=== PATIENT | male | born 1945 | race Hispanic/Latino ===

== ENCOUNTER → 2023-12-30 | Day surgery (SDC) | payer OTHER ==
[2023-12-27 10:10] LABS: BASOPHILS # (AUTO) 0.1 (0.0-0.1); BASOPHILS % 1.5 % (0.0-1.0); EOSINOPHILS # (AUTO) 0.2 (0.0-0.4); EOSINOPHILS % 3.9 % (0.0-6.0); HEMOGLOBIN 12.7 g/dL (14.0-18.0); LYMPHOCYTES # (AUTO) 1.6 (1.0-3.2); MEAN CORPUSCULAR HEMOGLOBIN 31.1 pg (28-32); MEAN CORPUSCULAR HGB CONC 33.4 g/dL (31-35); MEAN CORPUSCULAR VOLUME 92.9 fL (81-99); MONOCYTES # (AUTO) 0.6 (0.2-0.8); MONOCYTES % 9.5 % (4.4-11.3); NEUTROPHILS # (AUTO) 3.4 (2.1-6.9); NEUTROPHILS % 57.8 % (38.7-80.0); PLATELET COUNT 135 x10e3/uL (140-360); RED BLOOD COUNT 4.09 x10e6/uL (4.3-5.7); RED CELL DISTRIBUTION WIDTH 13.5 % (11.7-14.4); WHITE BLOOD COUNT 5.92 x10e3/uL (4.8-10.8)
[2023-12-27 10:48] LABS: ANION GAP 10.8 mmol/L (8-16); CALCIUM 8.9 mg/dL (8.4-10.2); CREATININE, SERUM 0.82 mg/dL (0.72-1.25); POTASSIUM 3.8 mmol/L (3.5-5.1)
[~2023-12-30] MED LIST: ALENDRONATE SOD35 MG PO; ALENDRONATE SOD70 MG PO; AMLODIPINE BESYL5 MG PO; AQUASOL A50000 UNIT PO; ASPIRIN EC81 MG PO; BALANCED SALT SOLN (OPTH) 15 ML BTL IO ONE; BUPIVACAINE HC 0.75% PF 10ML VIAL INJ ONE; CENTRUM ADULTS1 EACH PO; CENTRUM SILVER1 EAC3 PO; CRESTOR5 MG PO; CYMBALTA20 MG PO; CYMBALTA30 MG PO; DIOVAN160 MG PO; EPINEPHRINE HCL 1:1000 1ML 1 MG/ML AMP ONE; FENTANYL CITRATE/PF 100MCG/2 ML INJ ONE; FINASTERIDE5 MG PO; FOLIC ACID1 MG PO; GABAPENTIN600 MG PO; HYDROCODON-ACE1 EA12 PO; HYDROCODON-ACE1 EAC4; HYDROXYCHLOROQ200 MG PO; LIDOCAINE 2% /EPINEPHRINE 20 ML SDV INJ ONE; LIDOCAINE HCL 2% LOCAL INJ 5 ML SDV VIAL INJ ONE; LIDOCAINE HCL-PF 4% 40 MG/1 ML 5ML AMP ONE; LIPITOR10 MG PO; LOPID600 MG PO; LOSARTAN POTAS100 MG PO; METFORMIN HCL500 MG PO; MIDAZOLAM HCL 2 MG/2 ML VIAL ONE; NEOMYCIN/POLYMYXIN/DEX (OPTH) 3.5 GM TUBE ONE; NITROFURANTOIN100 M1 PO; OMEGA PO; OMEPRAZOLE20 MG PO; ONDANSETRON HCL INJ 2MG/ML 2ML 2 MG/ML VIAL ONE; PANTOPRAZOLE SO40 MG PO; PILOCARPINE HCL(OPTH) 15 ML LIQD ONE; POVIDONE IODINE 5% (OPTH) 30 ML BTL ONE; PROPOFOL IV EMULSION 10 MG/ML 20 ML VIAL ONE; VITAMIN D250000 UNIT PO; VITAMIN D3 COM1 EACH PO; ZINC CHELATED50 M2 PO; [UNRECOGNIZED DRUG - REMARK] PO
[2023-12-30] MEDS: TETRACAINE HCL 0.5% OPTH SOLN 4 ML BTL ONE (06:00)
[2023-12-30] MEDS: CYCLOPENTOLATE HCL 2% OPTH SOLN 2 ML BTL OP ONE (06:00)
[2023-12-30] MEDS: GATIFLOXACIN(OPTH) 5 ML LIQD ONE (06:01)
[2023-12-30] MEDS: PHENYLEPHRINE HCL 2 ML DROPS ONE (06:01)
[2023-12-30] MEDS: LACTATED RINGER'S 1,000 ML ONE (06:01)
[2023-12-30 08:07] VITALS: TEMP 97
[2023-12-30 08:27] VITALS: BP 164/83; PULSE 52; RESP 18; O2SAT 99
== END | disposition home or self-care (01) ==
LOC: OR 05:24
PROVIDERS: ATTEND Ophthalmology
DX: H25.11 Age-related nuclear cataract, right eye (principal); E11.9 Type 2 diabetes mellitus without complications; I10 Essential (primary) hypertension; E78.5 Hyperlipidemia, unspecified; K21.9 Gastro-esophageal reflux disease without esophagitis; M06.9 Rheumatoid arthritis, unspecified; N40.0 Benign prostatic hyperplasia without lower urinary tract symptoms; F32.A Depression, unspecified; Z88.0 Allergy status to penicillin; Z01.810 Encounter for preprocedural cardiovascular examination; Z01.812 Encounter for preprocedural laboratory examination; Z79.82 Long term (current) use of aspirin; Z79.84 Long term (current) use of oral hypoglycemic drugs; Z79.899 Other long term (current) drug therapy
CPT/HCPCS: 36415; 66984; 80048; 85025; 93005; J0171; J2001 ×2; J2250; J2405; J2704; J3010; J7121; V2632